=== PATIENT | male | born 1975 ===

== ENCOUNTER → 2017-06-01 | Outpatient (REF) ==
[2017-06-01 19:30] LABS: PSA-TOTAL 0.84 ng/mL (0-4); THYROID STIMULATING HORMONE 0.845 uIU/mL (0.465-4.680)
== END ==
LOC: ZLAB.WCH 18:06
PROVIDERS: Internal Medicine
DX: Z01.89 Encounter for other specified special examinations (principal)
CPT/HCPCS: G0103

== ENCOUNTER → 2017-10-15 | Outpatient (REF) | LOC: ZLAB.WCH 14:16 | DX: Z01.89 Encounter for other specified special examinations (principal) ==

== ENCOUNTER → 2018-08-18 | Outpatient (REF) ==
[2018-08-18 16:47] LABS: PSA-TOTAL 0.91 ng/mL (0-4)
[2018-08-18 17:25] LABS: THYROID STIMULATING HORMONE 1.63 uIU/mL (0.465-4.680)
== END ==
LOC: ZLAB.WCH 16:02
PROVIDERS: Internal Medicine
DX: Z01.89 Encounter for other specified special examinations (principal)
CPT/HCPCS: G0103